=== PATIENT | male | born 1975 | race Caucasian/White ===

== ENCOUNTER 2020-04-18 17:00 | Emergency (ER) | payer OTHER ==
[2020-04-18] MEDS ORDERED: LACTATED RINGERS SOLUTION 1000 ML INFUS.BAG IV ONE (18:14)
[2020-04-18 18:19] VITALS: TEMP 99.1; BMI 35.9
[2020-04-18] MEDS ORDERED: LISINOPRIL 20 MG TABLET PO ONE (18:25)
[2020-04-18] MEDS ORDERED: LISINOPRIL 5 MG TABLET ONE (18:52)
[2020-04-18 19:21] LABS: BASO % 0.3 % (0-2.0); EOS % 0.2 % (0-4.5); HEMATOCRIT 37.1 % (35.4-49); HEMOGLOBIN 12.4 GM/dl (11.7-16.9); LYMPH % 14.6 % (8-40); MCH 25.5 pg (25.7-33.7); MCHC 33.4 g/dl (32.0-35.9); MEAN CELL VOLUME 76.2 fl (80-96); MEAN PLT VOLUME 8.7 fl (7.5-11.1); MONO % 4.5 % (3.8-10.2); NEUT % 80.4 % (42.8-82.8); PLATELET COUNT 292 K/MM3 (134-434); RBC 4.87 M/mm3 (4.00-5.60); RDW 14.8 % (11.9-15.9); WHITE BLOOD COUNT 8.5 K/mm3 (4.0-10.8)
[2020-04-18 19:30] LABS: ALBUMIN 3.9 g/dl (3.4-5.0); BILIRUBIN,TOTAL 0.9 mg/dl (0.2-1); CALCIUM 8.6 mg/dl (8.5-10); CREATININE 0.8 mg/dl (0.55-1.3); MAGNESIUM 1.6 mg/dL (1.8-2.4); POTASSIUM 3.3 mmol/L (3.5-5.1); TOT PROT 9.5 g/dl (6.4-8.2)
[2020-04-18 19:31] LABS: INR 1.31 (0.82-1.09); PROTHROMBIN TIME (PATIENT) 14.4 SEC (10.2-13.0)
[2020-04-18 22:41] VITALS: BP 167/113; PULSE 104
== END 2020-04-18 23:36 | disposition home or self-care (01) ==
LOC: FER 17:00
DX: R50.9 Fever, unspecified (principal); R07.9 Chest pain, unspecified
CPT/HCPCS: 36415; 71045-TC-FY; 80053; 82550; 83735; 84484; 85025; 85610; 85730; 87804; 93005; 99285-25; C9803; U0003

== ENCOUNTER 2020-06-23 09:05 | Emergency (ER) | payer OTHER ==
[2020-06-23 09:21] VITALS: TEMP 98.8; BMI 34.7
[2020-06-23 09:52] LABS: BASO % 1.7 % (0-2.0); EOS % 0.6 % (0-4.5); HEMATOCRIT 35.8 % (35.4-49); HEMOGLOBIN 11.7 GM/dl (11.7-16.9); LYMPH % 22.5 % (8-40); MCH 24.5 pg (25.7-33.7); MCHC 32.6 g/dl (32.0-35.9); MEAN CELL VOLUME 75.2 fl (80-96); MEAN PLT VOLUME 8.6 fl (7.5-11.1); MONO % 4.9 % (3.8-10.2); NEUT % 70.3 % (42.8-82.8); PLATELET COUNT 314 K/MM3 (134-434); RBC 4.76 M/mm3 (4.00-5.60); RDW 14.6 % (11.9-15.9); WHITE BLOOD COUNT 6.4 K/mm3 (4.0-10.8)
[2020-06-23 10:00] LABS: ALBUMIN 3.8 g/dl (3.4-5.0); BILIRUBIN,TOTAL 0.8 mg/dl (0.2-1); CALCIUM 8.8 mg/dl (8.5-10); CREATININE 0.8 mg/dl (0.55-1.3); MAGNESIUM 1.7 mg/dL (1.8-2.4); TOT PROT 9.1 g/dl (6.4-8.2)
[2020-06-23 10:45] LABS: EPITHELIAL CELLS FEW /hpf
[2020-06-23 10:46] LABS: URINE HYALINE CAST 0-2 /lpf; URINE MUCUS 1+
[2020-06-23] MEDS ORDERED: MAG HYDROX/AL HYDROX/SIMETH 30 ML UNIT-DOSE CUP PO ONE (10:50)
[2020-06-23] MEDS ORDERED: FAMOTIDINE 20 MG/50 ML IVPB 20 MG/50 ML MG IVPB ONE ×2 (10:50→10:51)
[2020-06-23] MEDS ORDERED: MAG HYDROX/AL HYDROX/SIMETH 30 ML UNIT-DOSE CUP ONE (10:51)
[2020-06-23 11:43] VITALS: BP 151/86; PULSE 96
== END 2020-06-23 11:55 | disposition home or self-care (01) ==
LOC: FER 09:05
DX: R10.13 Epigastric pain (principal)
CPT/HCPCS: 36415; 71046-TC-FY; 80053; 81003; 81015; 83735; 84484; 85025; 93005; 99285-25